=== PATIENT | female | born 1995 | race Caucasian/White ===

== ENCOUNTER → 2017-04-29 | Outpatient (CLI) | payer MEDICAID, OTHER ==
[~2017-04-29] VITALS: Ht 177.8 cm; Wt 61.2 kg
[~2017-04-29] MED LIST: GADOTERIDOL 279.3 MG/ML 10 ML (PROHANCE) SYR IV ONE; IOHEXOL 300 MG/ML 30 ML (OMNIPAQUE 300) VIAL IV ONE
[2017-04-29 10:30] VITALS: BP 110/70
[2017-04-29 10:54] VITALS: BP 112/68
--- NOTE | 2017-04-29 11:48 | Diagnostic Imaging Report ---
EXAMINATION: Fluoroscopic guided joint injection/arthrogram- left. INDICATION: Right shoulder pain, request for MR arthrogram of the shoulder is submitted. Fluoroscopy time: 20 seconds CONSENT: Informed consent was obtained from the patient. The risks, benefits, potential complications and alternatives were reviewed and all questions answered to the patient's satisfaction. PROCEDURE: After sterile preparation and draping, 1% lidocaine was utilized for local anesthesia. A 22 spinal needle is introduced into the glenohumeral joint under fluoroscopic guidance. After confirmation of proper positioning with intra-articular injection of, 10 ml of 1:150 concentration of Gadavist in normal saline is injected the into the joint. The patient tolerated the procedure well with no immediate complications. FINDINGS: Arthrogram demonstrates Normal distribution of contrast in the joint with no filling of the subacromial subdeltoid bursa seen. IMPRESSION: Successful fluoroscopic guided injection of diluted gadolinium into the left shoulder. MR arthrogram to follow. Dictated by: Dictated on workstation # [id number]
--- NOTE | 2017-04-29 12:22 | Diagnostic Imaging Report ---
PROCEDURE: MRI left joint upper extremity with contrast. TECHNIQUE: Multiplanar, multisequence contrast-enhanced MRI of the left upper extremity was accomplished. INDICATION: Left shoulder pain. FINDINGS: There is no os acromiale or Hill-Sachs deformity. The acromioclavicular joint demonstrates no significant abnormality. The joint cavity is distended with contrast with no contrast leakage into the subacromial subdeltoid bursa is seen. There is minimal subchondral cyst seen in the upper lateral aspect of the humeral head near the insertion of the rotator cuff with 1-2 mm cyst size, otherwise the bone marrow is normal in appearance. The rotator cuff tendons appear normal. The long head biceps tendon is normal. There is no labral tear identified. Slight undercutting of the labrum in the anterior superior aspect is a common location for a normal finding of a sublabral recess. No definite tear. The muscle bulk and signal around the shoulder is normal. IMPRESSION: Contrast extension along the undersurface of the anterior superior labrum is probably a normal variant sublabral recess. No definite tear is seen. Dictated by: Dictated on workstation # [id number]
== END ==
LOC: RAD 10:17
PROVIDERS: ATTEND Orthopaedic Surgery
DX: M25.512 Pain in left shoulder (principal)
CPT/HCPCS: 23350; 73040; 73222